=== PATIENT | male | born 1930 | race Caucasian/White ===

== ENCOUNTER 2016-05-08 19:28 | Emergency (ER) | payer MEDICARE ==
--- NOTE | 2016-05-08 19:54 | Emergency Department Record ---
History of Present Illness - General Chief Complaint: Fall Injury Stated Complaint: FALL INJURY/LEFT SHOULDER PAIN Time Seen by Provider: 05/08/16 19:47 Source: Patient Mode of Arrival: Ambulatory Limitations: No limitations - History of Present Illness Initial Comments: 85 yo male presents with left shoulder pain after a fall. He fell two steps backwards injuring the shoulder and back. No head injury. No LOC. He does hurt mid to lower back. No chest pain, no abdominal pain. He is able to move the shoulder but it hurts. No lacerations. Prior history of stroke. MD Complaint: Fall -: Hour(s) Fall From: Down stairs (#) (2) When Fall Occurred: Just prior to arrival Fall Witnessed: Yes, by family Place Fall Occurred: Home Loss of Consciousness: None Prolonged Down Time?: No Symptoms Prior to Fall: None Location: Chest, Abdomen Location - Extremities: Left: Shoulder Severity: Moderate Quality: Aching Associated Symptoms: Denies - [place] Coma Scale Eye Response: (4) Open spontaneously Motor Response: (6) Obeys commands Verbal Response: (5) Oriented [place] Total: 15 - Related Data Home Medications Medication Instructions Recorded Confirmed Last Taken Aspirin [Aspirin EC] 325 mg PO DAILY 05/08/16 05/08/16 Unknown Cholecalciferol (Vitamin D3) 1,000 unit PO DAILY 05/08/16 05/08/16 Unknown [Vitamin D3] Clopidogrel Bisulfate [Plavix] 75 mg PO DAILY 05/08/16 05/08/16 Unknown Docusate Sodium [Colace] 100 mg PO DAILY 05/08/16 05/08/16 Unknown Famotidine [Pepcid] 20 mg PO DAILY 05/08/16 05/08/16 Unknown Fenofibrate [Lofibra] 160 mg PO DAILY 05/08/16 05/08/16 Unknown Metformin HCl [Glucophage Ir] 500 mg PO DAILY 05/08/16 05/08/16 Unknown Venlafaxine HCl [Effexor] 37.5 mg PO BID 05/08/16 05/08/16 Unknown Allergies Allergy/AdvReac Type Severity Reaction Status Date / Time No Known Drug Allergies Allergy Verified 05/08/16 19:36 Review of Systems Constitutional: Denies: Chills, Fever, Malaise, Weakness Eyes: Denies: Eye discharge ENT: Denies: Congestion, Throat pain Respiratory: Denies: Cough, Dyspnea, Hemoptysis, Stridor, Wheezes Cardiovascular: Denies: Chest pain, Palpitations, Syncope Endocrine: Denies: Fatigue Gastrointestinal: Denies: Abdominal pain, Diarrhea, Nausea, Vomiting Genitourinary: Denies: Dysuria, Frequency, Hematuria Musculoskeletal: Reports: Arthralgia, Back pain, Myalgia, Neck pain Skin: Denies: Bruising, Change in color, Rash Neurological: Denies: Confusion, Headache Psychiatric: Denies: Anxiety Hematological/Lymphatic: Denies: Blood Clots, Easy bleeding, Easy bruising, Swollen glands Physical Exam - General General Appearance: Alert, Oriented x3, Cooperative, No acute distress Limitations: No limitations - Head Head exam: Atraumatic, Normocephalic, Normal inspection - Eye Eye exam: Normal appearance, PERRL. negative: Conjunctival injection, Periorbital swelling - ENT ENT exam: Normal exam, Mucous membranes moist, TM's normal bilaterally Ear exam: Normal external inspection. negative: External canal tenderness Nasal Exam: Normal inspection. negative: Discharge, Sinus tenderness Mouth exam: Normal external inspection, Tongue normal Teeth exam: Normal inspection. negative: Dental caries, Dental tenderness #, Fractured tooth # Throat exam: Normal inspection. negative: Tonsillar erythema, Tonsillar exudate - Neck Neck exam: Normal inspection, Full ROM. negative: Tenderness - Respiratory Respiratory exam: Normal lung sounds bilaterally. negative: Decreased breath sounds, Prolonged expiratory, Respiratory distress, Rhonchi, Stridor, Wheezes - Cardiovascular Cardiovascular Exam: Regular rate, Normal rhythm, Normal heart sounds Peripheral Pulses: 2+: Radial (R), Radial (L) - GI/Abdominal GI/Abdominal exam: Soft. negative: Distended, Tenderness - Rectal Rectal exam: Deferred - exam: Deferred - Extremities Extremities exam: Normal inspection, Normal capillary refill, Tenderness Image of Full Body: 1 - tender anterior lateral, no deformity, some pain with ROM 2 - midl tenderness, no bruising, no abrasions, no step off, - Back Back exam: Reports: Normal inspection, Muscle spasm, Paraspinal tenderness, Tenderness, Vertebral tenderness. Denies: CVA tenderness (R), CVA tenderness (L ) - Neurological Neurological exam: Alert, Oriented X3 - Psychiatric Psychiatric exam: Normal affect, Normal mood - Skin Skin exam: Dry, Intact, Normal color, Warm. negative: Abrasion Course - Reevaluation(s) Reevaluation #1: The labs were reviewed. 05/08/16 20:28 Reevaluation #2: The HCT was negative for acute process, old remote lacunar The CT scan of the neck was negative for acute process The CT of the abdomen and pelvis was negative for acute process, old healing left glutteal hematoma The CT of the chest was negative for acute injury. 10 mm lung nodule Left Shoulder XR was negative for injury or acute changes 05/08/16 21:42 - Consultations Consultation #1: MDM No acute injuries on the testing including HCT, Cervical CT, Chest, Abdomen and Pelvis, XR. He has a supportive daughter with him who feels very comfortable with DC home. We discussed signs and symptoms to monitor and well as reasons to return to the ED. Medical Decision Making - Lab Data Result diagrams: 05/08/16 20:06 05/08/16 20:06 Disposition Disposition: Discharge Clinical Impression: Fall Qualifiers: Encounter type: initial encounter Qualified Code(s): W19.XXXA - Unspecified fall, initial encounter Back contusion Qualifiers: Encounter type: initial encounter Laterality: left Qualified Code(s): S20.222A - Contusion of left back wall of thorax, initial encounter Left shoulder strain Qualifiers: Encounter type: initial encounter Qualified Code(s): S46.912A - Strain of unspecified muscle, fascia and tendon at shoulder and upper arm level, left arm , initial encounter Disposition: Home, Self-Care Condition: (1) Good Instructions: Fall Prevention for Older Adults (ED), Shoulder Dislocation (ED) Additional Instructions: Call Dr Delcid or return to the ER if you have any new pain, uncontrolled pain or new concerns Tylenol as needed for mild pain Ice to any sore areas. Forms: Patient Portal Access Time of Disposition: 21:50
[2016-05-08] MEDS ORDERED: 0.9 % SODIUM CHLORIDE 1,000 ML BAG IV ONE (19:58)
[2016-05-08 20:10] LABS: BASO % 0.1 % (0-6); EOS % 2.4 % (0-6); GRAN % 71.4 % (47-80); HEMATOCRIT 35.6 % (42.0-52.0); HEMOGLOBIN 11.4 gm/dl (14.0-18.0); LYMPH % 17.2 % (16-45); MEAN CELL VOLUME 90.8 fl (81-97); MEAN PLATELET VOLUME 8.6 fl (7.4-10.4); MONO % 8.9 % (0-9); PLATELET COUNT 270 K/uL (130-400); RED BLOOD COUNT 3.92 M/uL (4.40-5.70); RED CELL DISTRIBUTION WIDTH 14.1 % (11.5-14.5); WHITE BLOOD COUNT W/O DIFF 9.7 K/uL (4.2-12.2)
[2016-05-08 20:21] LABS: ALB/GLOB RATIO 1.2 (1.1-1.8); ALBUMIN 3.9 gm/dL (3.5-5.0); ANION GAP 7.6 (7-16); BILIRUBIN,TOTAL 0.29 mg/dL (0.2-1.3); CARBON DIOXIDE 27.4 mmol/L (22-30); CREATININE 1.3 mg/dL (0.66-1.25); TOTAL PROTEIN 7.1 gm/dL (6.3-8.2)
[2016-05-08 20:23] LABS: INR 0.98; PARTIAL THROMBOPLASTIN TIME 30.1 SECONDS (24.5-39.1); PROTHROMBIN TIME (PATIENT) 11.1 SECONDS (9.5-12.1)
== END 2016-05-08 22:24 | disposition home or self-care (01) ==
LOC: ER 19:28
DX: S20.222A Contusion of left back wall of thorax, initial encounter (principal); S46.912A Strain of unspecified muscle, fascia and tendon at shoulder and upper arm level, left arm, initial encounter; M54.2 Cervicalgia; M54.5 Low back pain; E11.9 Type 2 diabetes mellitus without complications; Z79.84 Long term (current) use of oral hypoglycemic drugs; Z86.73 Personal history of transient ischemic attack (TIA), and cerebral infarction without residual deficits; W10.8XXA Fall (on) (from) other stairs and steps, initial encounter; Y92.009 Unspecified place in unspecified non-institutional (private) residence as the place of occurrence of the external cause; D75.0 Familial erythrocytosis; Z79.899 Other long term (current) drug therapy; Z51.81 Encounter for therapeutic drug level monitoring
CPT/HCPCS: 70450; 71550; 72125; 74176; 80048; 80053; 80061; 81003; 82150; 82306; 83036; 84450; 84460; 85025; 85610; 85730; 99284